=== PATIENT | female | born 1950 | race Caucasian/White ===

== ENCOUNTER 2022-05-29 22:20 | Emergency (ER) | payer SELFPAY ==
[~2022-05-29] VITALS: Ht 167.6 cm; Wt 72.6 kg
--- NOTE | 2022-05-29 22:42 | NUR ---
patient refusing to answer questions
--- NOTE | 2022-05-29 22:55 | NUR ---
Patient discharged to home in stable condition. Written and verbal after care instructions given. Patient verbalizes understanding of instruction.
== END 2022-05-29 22:55 | disposition home or self-care (01) ==
LOC: ER 22:21
DX: Z00.00 Encounter for general adult medical examination without abnormal findings (principal); Z60.2 Problems related to living alone